=== PATIENT | male | born 1990 | race African-American/Black ===

== ENCOUNTER 2018-03-30 20:36 | Emergency (ER) | payer MEDICAID, SELFPAY, OTHER | END 2018-03-30 23:11 | disposition home or self-care (01) | LOC: M ED 20:36 | DX: S62.302A Unspecified fracture of third metacarpal bone, right hand, initial encounter for closed fracture (principal); W26.9XXA Contact with unspecified sharp object(s), initial encounter; Y92.099 Unspecified place in other non-institutional residence as the place of occurrence of the external cause; Y93.9 Activity, unspecified; Y99.9 Unspecified external cause status; Z72.0 Tobacco use | CPT/HCPCS: 73130 ==

== ENCOUNTER 2018-07-03 09:35 | Day surgery (SDC) | payer OTHER ==
[2018-07-03] MEDS ORDERED: PROPOFOL 500 MG/50 ML VIAL As Ordered (11:59)
[2018-07-03] MEDS ORDERED: LIDOCAINE 2% INJ 100 MG/5 ML SDV (FOR ANES.) As Ordered (11:59)
== END 2018-07-03 12:02 | disposition home or self-care (01) ==
LOC: M OPP 09:35
DX: K62.5 Hemorrhage of anus and rectum (principal); K64.1 Second degree hemorrhoids; F17.210 Nicotine dependence, cigarettes, uncomplicated; Z80.0 Family history of malignant neoplasm of digestive organs
CPT/HCPCS: 45378

== ENCOUNTER 2019-05-29 03:18 | Emergency (ER) | payer OTHER ==
[~2019-05-29] VITALS: Ht 170.2 cm; Wt 70.5 kg
[~2019-05-29 03:18] MED LIST: HYDR-3715 PO; TYLE325C PO
[2019-05-29] MEDS ORDERED: ADACEL/BOOSTRIX VACCINE (DIPHTH/PERTUSS/ACELL/TETANUS)0.5ML SYR (90715) IM ONE (06:15)
[2019-05-29 06:33] VITALS: BP 114/68
[2019-05-29] MEDS ORDERED: CIPR-249 PO (06:36)
[2019-05-29 06:40] LABS: BASO # 0.1 10^3/uL (0.0-0.2); BASO % 0.7 % (0.0-1.0); EOS # 0.4 10^3/uL (0.0-0.50); EOS % 5.1 % (0.0-3.0); HEMATOCRIT 42.9 % (42.0-52.0); LYMPH # 2.9 10^3/uL (1.5-6.5); LYMPH % 39.7 % (24.0-44.0); MEAN CORPUSCULAR HEMOGLOBIN 31.2 pg (27.0-33.0); MEAN CORPUSCULAR VOLUME 89.2 fl (80.0-96.0); MONO # 0.5 10^3/uL (0.0-0.8); MONO % 7.5 % (0.0-5.0); NEUTROPHILS # 3.4 10^3/uL (1.8-7.7); NEUTROPHILS % 46.7 % (36.0-66.0); PLATELET COUNT, AUTOMATED 185 10^3/uL (150-450); RED BLOOD COUNT 4.81 10^6/uL (4.30-6.10); WHITE BLOOD COUNT 7.2 10^3/uL (4.0-10.0)
--- NOTE | 2019-05-29 07:22 | REP ---
Left foot four views for foreign body: On the lateral view a cutaneous BB marker identifies the area in question. No radio-opaque foreign body is identified. Mineralization is normal. The skeletal structures and joint spaces are unremarkable. Impression: No radiopaque foreign body. Otherwise, negative left foot. Electronically Signed by Nabil Pierce MD 05/29/2019 07:13 A
== END 2019-05-29 07:10 | disposition home or self-care (01) ==
LOC: M ED 03:58
DX: S91.332A Puncture wound without foreign body, left foot, initial encounter (principal); S90.822A Blister (nonthermal), left foot, initial encounter; W45.0XXA Nail entering through skin, initial encounter; Y92.018 Other place in single-family (private) house as the place of occurrence of the external cause; F17.210 Nicotine dependence, cigarettes, uncomplicated

== ENCOUNTER 2021-12-05 17:27 | Emergency (ER) | payer OTHER ==
[~2021-12-05] VITALS: Ht 170.2 cm; Wt 72.4 kg
[~2021-12-05 17:27] MED LIST changes: +CIPR-249 PO
[2021-12-05 17:30] VITALS: BP 142/84
== END 2021-12-05 21:40 | disposition left against medical advice (07) ==
LOC: M ED 17:27
DX: Z53.29 Procedure and treatment not carried out because of patient's decision for other reasons (principal)

== ENCOUNTER → 2023-07-11 | Day surgery (SDC) | payer OTHER ==
[~2023-07-11] VITALS: Ht 170.2 cm; Wt 70.3 kg
[~2023-07-11] MED LIST changes: +NS 1,000 ML IV ONE
== END | disposition home or self-care (01) ==
LOC: M OPP 09:04
PROVIDERS: ATTEND Surgery
DX: K62.89 Other specified diseases of anus and rectum (principal); Z53.8 Procedure and treatment not carried out for other reasons

== ENCOUNTER 2023-08-17 09:17 | Day surgery (SDC) | payer OTHER ==
[~2023-08-17] VITALS: Ht 170.2 cm; Wt 68.1 kg
[2023-08-17 11:23] VITALS: TEMP 96.6
[2023-08-17 11:43] VITALS: BP 121/84; O2SAT 100
== END 2023-08-17 11:50 | disposition home or self-care (01) ==
LOC: M OPP 09:17
PROVIDERS: ATTEND Surgery
DX: K62.89 Other specified diseases of anus and rectum (principal); K64.1 Second degree hemorrhoids; K63.5 Polyp of colon

== ENCOUNTER 2024-01-18 14:47 | Emergency (ER) | payer OTHER ==
[~2024-01-18] VITALS: Ht 170.2 cm; Wt 73.0 kg
[~2024-01-18 14:47] MED LIST changes: -NS 1,000 ML IV ONE
[2024-01-18] MEDS: IBUPROFEN 800 MG TAB PO ONE (16:20)
[2024-01-18] MEDS ORDERED: LIDOCAINE 2% MDV 20ML VIAL As Ordered ONE (17:18)
[2024-01-18] MEDS: LIDOCAINE 2% MDV 20ML VIAL SC ONE (17:19)
[2024-01-18] MEDS: NORCO, ANEXSIA 5/325MG TABLET (HYDROcodone/ACETAMINOPHEN) PO ONE (17:19)
[2024-01-18] MEDS: ceFAZolin SOD 1 GM in D5W MINI-BAG PLUS 50 ML IV ONE (17:19)
[2024-01-18] MEDS ORDERED: CEPH500C PO (18:52)
[2024-01-18] MEDS ORDERED: HYDR-3713 PO (18:52)
[2024-01-18 19:09] VITALS: BP 132/92; TEMP 98.2; O2SAT 100
== END 2024-01-18 19:12 | disposition home or self-care (01) ==
LOC: M ED 14:47
DX: S61.012A Laceration without foreign body of left thumb without damage to nail, initial encounter (principal); S62.631B Displaced fracture of distal phalanx of left index finger, initial encounter for open fracture; W31.2XXA Contact with powered woodworking and forming machines, initial encounter; Y92.009 Unspecified place in unspecified non-institutional (private) residence as the place of occurrence of the external cause; Y93.89 Activity, other specified; Y99.9 Unspecified external cause status; F17.200 Nicotine dependence, unspecified, uncomplicated; Z79.899 Other long term (current) drug therapy
CPT/HCPCS: 12002; 73130; 96365; 99284; J0690

== ENCOUNTER 2024-01-23 06:10 | Day surgery (SDC) | payer OTHER ==
[~2024-01-23] VITALS: Ht 170.2 cm; Wt 70.9 kg
[~2024-01-23 06:10] MED LIST changes: +CEPH500C PO; +HYDR-3713 PO
[2024-01-23] MEDS ORDERED: ceFAZolin SOD 2 GM in IV 1 EA IV ONE (06:30)
[2024-01-23] MEDS ORDERED: LIDOCAINE 1% SDV 5ML VIAL SC PRN (06:35)
[2024-01-23] MEDS: LR 1,000 ML IV SCH (06:53)
[2024-01-23] MEDS ORDERED: propofoL 200 MG/20 ML VIAL As Ordered ONE (07:00)
[2024-01-23] MEDS ORDERED: KETOROLAC 60MG 2ML VIAL As Ordered ONE (07:00)
[2024-01-23] MEDS ORDERED: LIDOCAINE 2% 100MG/5ML SDV (FOR ANES.) As Ordered ONE (07:00)
[2024-01-23] MEDS ORDERED: ONDANSETRON 4MG 2ML VIAL As Ordered ONE (07:00)
[2024-01-23] MEDS ORDERED: fentaNYL 100 MCG/2 ML INJECTION As Ordered ONE (07:01)
[2024-01-23] MEDS ORDERED: MIDAZOLAM INJ 2MG/2ML VIAL As Ordered ONE (07:01)
[2024-01-23] MEDS ORDERED: LIDOCAINE 1% SDV 30ML VIAL As Ordered ONE (07:11)
[2024-01-23] MEDS ORDERED: BACITRACIN OINTMENT 30GM TUBE As Ordered ONE (08:28)
[2024-01-23] MEDS ORDERED: MORPHINE 2 MG/ML 1ML VIAL IV PRN (08:50)
[2024-01-23] MEDS ORDERED: oxyCODONE 5MG TAB PO PRN (08:50)
[2024-01-23] MEDS ORDERED: ONDANSETRON 4MG 2ML VIAL IV PRN (08:50)
[2024-01-23] MEDS ORDERED: fentaNYL 100 MCG/2 ML INJECTION IV PRN (08:50)
[2024-01-23] MEDS ORDERED: HYDR-3713 PO (08:51)
[2024-01-23 10:10] VITALS: BP 146/79; TEMP 97.6; O2SAT 97
== END 2024-01-23 10:11 | disposition home or self-care (01) ==
LOC: M SDC 06:10
PROVIDERS: ATTEND Orthopaedic Surgery Hand Surgery
DX: S66.121A Laceration of flexor muscle, fascia and tendon of left index finger at wrist and hand level, initial encounter (principal); S62.631B Displaced fracture of distal phalanx of left index finger, initial encounter for open fracture; S61.012A Laceration without foreign body of left thumb without damage to nail, initial encounter; W27.0XXA Contact with workbench tool, initial encounter; Y93.89 Activity, other specified; Y92.9 Unspecified place or not applicable; F17.290 Nicotine dependence, other tobacco product, uncomplicated
CPT/HCPCS: 11012; 12001; 26370; 76000; J0665; J1100; J1885; J2250; J2405; J3010